=== PATIENT | male | born 1970 | race Caucasian/White ===

== ENCOUNTER 2017-04-28 06:58 | Emergency (ER) | payer OTHER ==
[~2017-04-28] VITALS: Ht 182.9 cm; Wt 190.5 kg
[2017-04-28] MEDS ORDERED: HYDROCHLOROTH12.5 M1 PO (07:14)
[2017-04-28] MEDS ORDERED: LEVOTHYROXINE100 MC1 PO (07:14)
[2017-04-28] MEDS ORDERED: WELLBUTRIN 100100 MG PO (07:14)
[2017-04-28 07:34] LABS: INFLUENZA A ANTIGEN None Detected (None Detect); INFLUENZA B ANTIGEN None Detected (None Detect)
[2017-04-28 08:02] LABS: ABSOLUTE EOSINOPHILS 0.1 thou/uL (0.0-0.7); ABSOLUTE LYMPHOCYTES 1.2 thou/uL (0.8-5.3); ABSOLUTE MONOCYTES 0.4 thou/uL (0.0-1.2); ABSOLUTE NEUTROPHILS 1.8 thou/uL (1.6-8.1); BASOPHILS 0.9 %; EOSINOPHILS 3.4 %; HEMATOCRIT 47.4 % (42.0-52.0); HEMOGLOBIN 15.9 gm/dL (14.0-18.0); MCH 30.5 pg (26.0-34.0); MCHC 33.6 g/dL (28.0-37.0); MCV 90.8 fL (80.0-100.0); MONOCYTES 11.2 %; MPV 7.9 fl. (7.2-11.1); NUCLEATED RBCS 0 /100WBC; PLATELET COUNT* 199 thou/uL (150-400); POLYS 50.5 %; RBC 5.22 mil/uL (4.50-6.00); RDW-CV 14.1 % (10.5-14.5); WBC 3.6 thou/uL (4.0-11.0)
[2017-04-28 08:12] LABS: CALCIUM 9.1 mg/dL (8.5-10.1); POTASSIUM 3.6 mmol/L (3.5-5.1)
[2017-04-28 08:17] LABS: ALBUMIN 3.8 g/dL (3.4-5.0); TOTAL BILIRUBIN 0.4 mg/dL (<0.1-1.0); TOTAL PROTEIN 7.4 g/dL (6.4-8.2)
[2017-04-28] MEDS ORDERED: PROAIR HFA8.5 GM PO (09:10)
[2017-04-28] MEDS ORDERED: MEDROLDOSEPACK PO (09:10)
[2017-04-28 09:22] VITALS: BP 121/60
== END 2017-04-28 09:23 | disposition home or self-care (01) ==
LOC: M.ERS 06:58
PROVIDERS: Personal Emergency Response Attendant
DX: J06.9 Acute upper respiratory infection, unspecified (principal); J98.01 Acute bronchospasm; Z90.89 Acquired absence of other organs

== ENCOUNTER 2020-09-08 11:15 | Emergency (ER) | payer OTHER ==
[~2020-09-08] VITALS: Ht 188 cm; Wt 199.6 kg
[~2020-09-08 11:15] MED LIST: HYDROCHLOROTH12.5 M1 PO; LEVOTHYROXINE100 MC1 PO; MEDROLDOSEPACK PO; PROAIR HFA8.5 GM PO; WELLBUTRIN 100100 MG PO
[2020-09-08 11:18] VITALS: BP 190/100
[2020-09-08] MEDS ORDERED: LISINOPRIL5 MG PO (11:26)
--- NOTE | 2020-09-08 15:40 | EKG ---
[place] [address] ELECTROCARDIOGRAM REPORT Name: UNIQUE MILLER Room: [facility]#: [id number] Admission: 09/08/20 Attend Phys: Discharge: 09/08/20 Date of : 72 Date of Service: 09/08/20 1119 Report #: [id number] THIS REPORT FOR: //name// [facility] ED Test Date: 2020-09-08 Test Time: 11:19:44 Pat Name: UNIQUE MILLER Department: Room: Gender: Technical Sales Director: : 1970 Requested By: Jag Jarquin Order Number: [id number] Yahaira MD: Derek Ricketts Measurements Intervals [place] Rate: 82 P: 41 LA: 154 QRS: 7 QRSD: 126 T: 55 QT: 377 QTc: 441 Interpretive Statements Sinus rhythm Nonspecific intraventricular conduction delay No previous ECG available for comparison Electronically Signed On 09-08-2020 15:40:31 CDT by Derek Ricketts [email or web address] <ELECTRONICALLY SIGNED> By: Derek Ricketts MD, [facility] 09/08/20 1540 1119 1119 Derek Ricketts MD, FACC /EPI
== END 2020-09-08 11:45 | disposition home or self-care (01) ==
LOC: M.ERS 11:15
DX: G51.0 Bell's palsy (principal); Z90.89 Acquired absence of other organs; Z98.890 Other specified postprocedural states; Z79.899 Other long term (current) drug therapy